=== PATIENT | female | born 1955 | race Caucasian/White ===

== ENCOUNTER 2019-09-03 10:55 | Outpatient (RCR) | payer MEDICARE | END 2019-09-28 | LOC: PT 10:55 | PROVIDERS: ATTEND Specialist | DX: M47.896 Other spondylosis, lumbar region (principal); S39.012A Strain of muscle, fascia and tendon of lower back, initial encounter; M53.86 Other specified dorsopathies, lumbar region; M62.81 Muscle weakness (generalized); R26.89 Other abnormalities of gait and mobility | CPT/HCPCS: 97139 ==

== ENCOUNTER 2019-10-28 14:23 | Inpatient (IN) | payer MEDICARE, OTHER ==
[~2019-10-28] VITALS: Ht 152.4 cm; Wt 48.3 kg
[2019-10-28 15:23] LABS: BASOPHILS # (AUTO) 0.1 (0.0-0.1); BASOPHILS % 0.8 % (0.0-1.0); EOSINOPHILS # (AUTO) 0.2 (0.0-0.4); EOSINOPHILS % 1.9 % (0.0-6.0); HEMATOCRIT 30.2 % (34.2-44.1); HEMOGLOBIN 10.5 g/dL (12.0-16.0); LYMPHOCYTES # (AUTO) 1.2 (1.0-3.2); LYMPHOCYTES % 12.4 % (18.0-39.1); MEAN CORPUSCULAR HEMOGLOBIN 31.3 pg (28-32); MEAN CORPUSCULAR HGB CONC 34.8 g/dL (31-35); MEAN CORPUSCULAR VOLUME 89.9 fL (81-99); MONOCYTES # (AUTO) 0.5 (0.2-0.8); MONOCYTES % 5.3 % (4.4-11.3); NEUTROPHILS # (AUTO) 7.4 (2.1-6.9); NEUTROPHILS % 79.2 % (38.7-80.0); PLATELET COUNT 356 x10e3/uL (140-360); RED BLOOD COUNT 3.36 x10e6/uL (3.6-5.1); RED CELL DISTRIBUTION WIDTH 13.7 % (11.7-14.4)
[2019-10-28 15:42] LABS: ALANINE AMINOTRANSFERASE 12 IU/L (0-55); ALBUMIN 2.7 g/dL (3.5-5.0); ALKALINE PHOSPHATASE 147 IU/L (40-150); ANION GAP 11.2 mmol/L (8-16); BLOOD UREA NITROGEN 14 mg/dL (7-26); BUN/CREATININE RATIO 23 (6-25); CALCIUM 8.7 mg/dL (8.4-10.2); CARBON DIOXIDE 28 mmol/L (22-29); CHLORIDE 103 mmol/L (98-107); CREATINE KINASE 298 IU/L (29-168); CREATININE, SERUM 0.61 mg/dL (0.57-1.11); EST GLOMERULAR FILTRATION RATE > 60 ML/MIN (60-); GLUCOSE 100 mg/dL (74-118); SODIUM 140 mmol/L (136-145)
[2019-10-28 15:50] LABS: POTASSIUM 2.2 mmol/L (3.5-5.1)
[2019-10-28] MEDS ORDERED: DIATRIZOATE MEGL/DIATRIZOA SOD 30 ML BTL PO ONE (15:51)
[2019-10-28] MEDS ORDERED: POTASSIUM CHLORIDE 20 MEQ TAB CR PO STA (15:54)
[2019-10-28] MEDS ORDERED: SODIUM CHLORIDE 0.9% 50ML 0 ML ONE (16:13)
[2019-10-28] MEDS ORDERED: IOPAMIDOL 370 MG/ML 200 ML INFUS..BTL INJ ONE ×2 (16:13→16:28)
[2019-10-28] MEDS ORDERED: SODIUM CHLORIDE 0.9% 50ML 50 ML ONE (16:28)
--- NOTE | 2019-10-28 16:34 | Diagnostic Imaging Report ---
X-ray chest AP portable Comparison: None History: Severe abdominal pain Findings: This is a suboptimal x-ray exam. There is apical lordotic positioning. There is significant patient rotation on this exam. Heart size is borderline normal. Aorta is atherosclerotic. Central airways appear unremarkable. No significant abnormality of the mediastinum to the extent visualized. There is no pleural effusion. There is no pneumothorax. There is no significant focal lung disease. Visualized skeletal structures are unremarkable. Cuboid opacities are seen in the upper abdomen. These could represent inspissated fecal matter. There is lucency under the diaphragm. This most likely represents air in the colon or the stomach however it is difficult to confirm that this is intraluminal versus possibly extraluminal because of the significant patient rotation. Impression: Findings as above. Please repeat an upright chest x-ray with better patient positioning to characterize subdiaphragmatic lucency and rule out free intraperitoneal air with certainty. Cross-sectional imaging would be another option. Signed by: Pradip Titus MD on 10/28/2019 4:30 PM
[2019-10-28] MEDS ORDERED: POTASSIUM CHLORIDE 10MEQ/100ML 100 ML IV ONE (17:00)
--- NOTE | 2019-10-28 18:18 | Diagnostic Imaging Report ---
EXAM: CT Abdomen and Pelvis WITH contrast INDICATION: Abdominal pain COMPARISON: None. TECHNIQUE: Abdomen and pelvis were scanned utilizing a multidetector helical scanner from the lung base to the pubic symphysis after administration of IV contrast. Coronal and sagittal reformations were obtained. Dose modulation, iterative reconstruction, and/or weight based adjustment of the mA/kV was utilized to reduce the radiation dose to as low as reasonably achievable. Routine protocol was performed. Scan was performed when during portal venous phase. IV CONTRAST: 150 mL of Omnipaque 300 ORAL CONTRAST: Water COMPLICATIONS: None RADIATION DOSE: Total DLP: 192.13 mGy-cm Estimated effective dose: (DLP x 0.015 x size factor) mSv CTDIvol has been reviewed. It is below the limits set by the Radiation Protocol Committee (RPC). FINDINGS: LINES and TUBES: None. LOWER THORAX: There are bilateral peripheral groundglass opacities incompletely included on this exam. There are also few nodular opacities are seen in lung bases largest measuring 1.4 cm (2/24) HEPATOBILIARY: Multiple ill-defined subcentimeter low-density lesions are seen in both hepatic lobes (series 2, images 16, 17, 18, 22, 25 and 32) No biliary ductal dilation. GALLBLADDER: No radio-opaque stones or sludge. No gallbladder wall thickening. SPLEEN: No splenomegaly. Subcentimeter ill-defined low-density lesions in the anterior aspect of the spleen (series 2, images 2326).. PANCREAS: There is a 1.6 cm low-density lesion in the distal pancreatic body (2/29). Adjacent to this lesion there is decreased attenuation of the distal pancreatic body and tail . Additionally there is soft tissue infiltration surrounding the celiac axis and SMA. There is mass effect on the portal vein. ADRENALS: There is a 2.0 cm right adrenal nodule. The left lateral gland is unremarkable. KIDNEYS/URETERS: Kidneys enhance symmetrically. No hydronephrosis. No cystic or solid mass lesions. No stones. GI TRACT: No abnormal distention, wall thickening, or evidence of bowel obstruction. Marked degree of fecal retention in the rectum compatible constipation. PELVIC ORGANS/BLADDER: Bladder is markedly distended. LYMPH NODES: 0.8 cm left paraortic lymph node (2/43) an 0.7 cm mesenteric lymph nodes (2/42) are nonspecific. VESSELS: In addition to above-mentioned mass effect on portal vein by the pancreatic mass. There is severe atherosclerotic disease in the aorta and major arterial branches. PERITONEUM / RETROPERITONEUM: No free air or fluid. BONES: Sclerotic lesions in the T12, L1, L2 and L3 vertebral bodies are highly suspicious for metastases. Benign-appearing chondroid lesion in the right femoral neck is seen. No aggressive osseous lesion. SOFT TISSUES: Unremarkable. IMPRESSION: 1. Infiltrative pancreatic mass involving the distal pancreatic body and tail as well as celiac axis and SMA with mass effect on portal vein is concerning for primary malignancy. 2. Ill-defined low-density lesions in the liver and spleen as well as right adrenal nodule and sclerotic lesions in the spine are suspicious for metastases. 3. Peripheral nodular groundglass opacities in both lungs could be due to metastases or atypical infection. 4. Marked degree of fecal retention in the rectum compatible constipation. Signed by: Shamar Jeong MD on 10/28/2019 6:15 PM
[2019-10-28] MEDS: MORPHINE SULFATE INJ 4 MG/ML INJ 1ML IV PRN ×2 (18:38→22:45)
[2019-10-28] MEDS: ONDANSETRON HCL INJ 2MG/ML 2ML 2 MG/ML VIAL IV PRN ×2 (18:38→22:45)
[2019-10-28] MEDS ORDERED: MORPHINE SULFATE INJ 4 MG/ML INJ 1ML ONE (18:41)
[2019-10-28] MEDS ORDERED: ONDANSETRON HCL INJ 2MG/ML 2ML 2 MG/ML VIAL ONE (18:41)
[2019-10-28] MEDS ORDERED: MORPHINE SULFATE 2 MG/ML SYR 1ML IV PRN (18:45)
--- NOTE | 2019-10-28 21:35 | NUR ---
HPI: 63-year-old lady who was seen and noted in the emergency room department complaining of abdominal pain with radiation to the back. The patient was quite upset since she has been advised about the findings, which are that of possible pancreatic tumor. She was devastated and wanted to talk to her son. The patient did have CT scan of the abdomen done and the findings are the pancreatic mass involving the distal pancreatic body and tail as well as celiac axis. Review of system: Constitutional: fever and chills, generalized weakness. HEENT: Denies headache, no ear pain, no nosebleed, no sore throat. Cardiovascular: Denies chest pain, PND, swelling of the legs, palpitations or blackout spells. Respiratory: cough. Denies hemoptysis or shortness of breath. Gastrointestinal: Abdominal pain. Denies nausea, vomiting, diarrhea, hematemesis or melena. Genitourinary: frequency. Denies hematuria or dysuria. Neurologic: Denies convulsive disorders, no focal weakness, no ataxia. Psych: Denies anxiety or depression Skin: No rash. Hematological system: Denies bleeding, no petechia. Musculoskeletal: No significant deformity or swelling of the joints. Past medical history: Depression, Chronic back pain. Past surgical history: Noncontributory Family history: Lung Cancer: Grandfather Bone Cancer: Grandmother Social history: Noncontributory. Physical exam: Vital signs: BP: 128/89; HR: 83; RR: 20; Temperature: 98.6 Constitutional: The patient is oriented to person, place, and time. HEENT: Head: Normocephalic and atraumatic. PERRLA. Cardiovascular: Regular rhythm, no murmurs, no rubs, no gallops. Pulmonary/Chest: Clear bilaterally, no rales, no rhonchi. Abdominal: Soft, nontender, bowel sounds positive and normal. No distention, no guarding, no rebound. Musculoskeletal: Normal range of motion. Extremities: No edema, no clubbing. Neurological: The patient is alert and oriented to person, place, and time. Skin: Skin is warm and dry. Pressure ulcer localized in the lateral left hip and buttock area. Psychiatric: He has a normal mood and affect. Abdomen/Pelvis CT on 10/28/2019: 1. Infiltrative pancreatic mass involving the distal pancreatic body and tail as well as celiac axis and SMA with mass effect on portal vein is concerning for primary malignancy. 2. Ill-defined low-density lesions in the liver and spleen as well as right adrenal nodule and sclerotic lesions in the spine are suspicious for metastases. 3. Peripheral nodular groundglass opacities in both lungs could be due to metastases or atypical infection. 4. Marked degree of fecal retention in the rectum compatible constipation. Assessment: Abdominal pain Pancreatic mass by CT-rule out malignancy vrs metastatic disease Ulcer pressure of the left lateral hip and buttock Hypokalemia Constipation PCR for Coronavirus was reported negative. Plan of care: IV antibiotics IV Fluids Pain control Antiemetics as needed Monitor potassium and replace as needed DVT prophylaxis Wound care Hemato-Oncology Consultation Gastroenterology Consultation
[2019-10-28 23:56] LABS: ANION GAP 12.9 mmol/L (8-16); BLOOD UREA NITROGEN 12 mg/dL (7-26); BUN/CREATININE RATIO 21 (6-25); CALCIUM 9.3 mg/dL (8.4-10.2); CARBON DIOXIDE 27 mmol/L (22-29); CHLORIDE 103 mmol/L (98-107); CREATININE, SERUM 0.58 mg/dL (0.57-1.11); EST GLOMERULAR FILTRATION RATE > 60 ML/MIN (60-); GLUCOSE 87 mg/dL (74-118); SODIUM 140 mmol/L (136-145)
[2019-10-29] VITALS (9 sets, daily range): BP systolic 92–132; BP diastolic 50–89
[2019-10-29 00:02] LABS: POTASSIUM 2.9 mmol/L (3.5-5.1)
[2019-10-29] MEDS ORDERED: POTASSIUM CHLORIDE 20MEQ/100ML 100 ML IV ONE (01:45)
--- NOTE | 2019-10-29 03:01 | NUR ---
Received patient from ER via stretcher. Patient in stable condition, no s/s of acute distress at this time. Oriented to room and hospital policies. Bed locked and in low position, side rails up x3, alarm on, call light placed within reach. Patient instructed to call for assistance if needed, verbalized understanding. All safety measures in place. Will continue to monitor.
[2019-10-29] MEDS: MORPHINE SULFATE INJ 4 MG/ML INJ 1ML IV PRN ×5 (03:05→20:36)
[2019-10-29] MEDS: ONDANSETRON HCL INJ 2MG/ML 2ML 2 MG/ML VIAL IV PRN ×5 (03:05→20:36)
[2019-10-29] MEDS ORDERED: SODIUM CHLORIDE 0.9% 250ML 250 ML ONE (03:10)
[2019-10-29] MEDS ORDERED: TRAZODONE HCL50 MG PO (03:20)
[2019-10-29] MEDS ORDERED: XANAX1 MG PO (03:20)
[2019-10-29] MEDS ORDERED: SERTRALINE HCL100 MG PO (03:20)
[2019-10-29] MEDS ORDERED: TRAZODONE HCL100 MG PO (04:56)
[2019-10-29 06:01] LABS: BASOPHILS # (AUTO) 0.1 (0.0-0.1); BASOPHILS % 0.8 % (0.0-1.0); EOSINOPHILS # (AUTO) 0.3 (0.0-0.4); EOSINOPHILS % 2.5 % (0.0-6.0); HEMATOCRIT 31.6 % (34.2-44.1); HEMOGLOBIN 10.7 g/dL (12.0-16.0); LYMPHOCYTES # (AUTO) 1.4 (1.0-3.2); LYMPHOCYTES % 12.8 % (18.0-39.1); MEAN CORPUSCULAR HEMOGLOBIN 30.7 pg (28-32); MEAN CORPUSCULAR HGB CONC 33.9 g/dL (31-35); MEAN CORPUSCULAR VOLUME 90.8 fL (81-99); MONOCYTES # (AUTO) 0.7 (0.2-0.8); NEUTROPHILS # (AUTO) 8.1 (2.1-6.9); NEUTROPHILS % 76.3 % (38.7-80.0); PLATELET COUNT 334 x10e3/uL (140-360); RED BLOOD COUNT 3.48 x10e6/uL (3.6-5.1); RED CELL DISTRIBUTION WIDTH 13.9 % (11.7-14.4)
[2019-10-29 06:39] LABS: ALANINE AMINOTRANSFERASE 15 IU/L (0-55); ALBUMIN 2.8 g/dL (3.5-5.0); ALKALINE PHOSPHATASE 150 IU/L (40-150); ANION GAP 12.6 mmol/L (8-16); BLOOD UREA NITROGEN 10 mg/dL (7-26); BUN/CREATININE RATIO 17 (6-25); CALCIUM 9.2 mg/dL (8.4-10.2); CARBON DIOXIDE 26 mmol/L (22-29); CHLORIDE 104 mmol/L (98-107); EST GLOMERULAR FILTRATION RATE > 60 ML/MIN (60-); GLUCOSE 86 mg/dL (74-118); MAGNESIUM 1.6 MG/DL (1.3-2.1); PHOSPHORUS 2.6 MG/DL (2.3-4.7); POTASSIUM 3.6 mmol/L (3.5-5.1); SODIUM 139 mmol/L (136-145)
[2019-10-29 06:53] LABS: CREATINE KINASE 266 IU/L (29-168)
[2019-10-29 12:51] LABS: CREATINE KINASE 198 IU/L (29-168)
--- NOTE | 2019-10-29 14:33 | NUR ---
WOUND CARE CONSULT FOR 63 YO FEMALE HX OF HYPOKALEMIA, PANCREATIC MASS. CHET 13 ON MODERATE PUP STATUS AND INTERVENTIONS LABS: WBC- 10.59 HGB- 10.7 GLUCOSE-87 SKIN ASSESSMENT COMPLETE PATIENT PRESENTS WITH: 1)STAGE II PRESSURE ULCER TO LEFT LATERAL HIP; MEASURING 1 CM X 1CM X 0.1 CM, WITH MINIMAL SEROUSANGUINEOUS DRAINAGE, AND 100% RED GRANULATION. 2)STAGE II PRESSURE ULCER TO LEFT DISTAL BUTTOCK; MEASURING 1.5 CM X 1.5 CM X 0.1 CM WITH 90% YELLOW SLOUGH COVERING WOUND BASE AND 10 % PINK GRANULATION. 3)STAGE II PRESSURE ULCER TO LEFT PROXIMAL BUTTUCK; MEASURING BENJIE STAGE 1 MEASURES 2.5 CM X 1.5 CM X 0.1 CM, WITH 15 % YELLOW SLOUGH AND 85% PINK GRANULATION. RECOMMENDATIONS: NURSING TO CONTINUE TO MONITOR PATIENT AND KEEP SKIN CLEAN FREE OF IRRITATING MOISTURE AND CONTINUE TO FOLLOW MODERATE PUP INTERVENTIONS. NURSING TO CONTINUE TO GET PATIENT OUT OF BED FOR MEALS AND MUCH TOLERATED. NURSING TO CLEAN STAGE II PRESSURE ULCERS TO LEFT BUTTOCK WITH NORMAL SALINE, PAT DRY WITH 4X4 GAUZE AND APPLY VENELEX OINTMENT TO PERIWOUND COVER WITH ALLEVYN FOAM DRESSING DAILY AND NEEDED. NURISNG TO CLEAN STAGE II PRESSURE ULCER TO LEFT LATER HIP WITH NORMAL SALINE, PAT DRY WITH 4X4 GAUZE, APPLY FIBRACOL, APPLY 1 DROP OF NORMAL SALINE AND COVER WITH ALLEVEN FOAM. NURSING TO CONTINUE TO ASSIST PATIENT NEEDED WITH MEALS AND NUTRITIONAL SUPPLEMENTS TO ENSURE PROPER REQUIREMENTS FOR HEALING. NURSING TO CONTINUE TO OFFLOAD FEET AND HEELS NEEDED WITH PILLOW SUSPENSION WHEN IN BED. NURSING TO REPOSITION PATIENT SIDE TO SIDE Q2H AND PRN. NURSING TO CONSULT WOUND CARE NEEDED. Addendum: 10/29/19 at 1456 by Princess Galeano RN Amended: Links added.
--- NOTE | 2019-10-29 16:59 | NUR ---
Subjective: The patient was complaining of abdominal pain Feeling somewhat constipated, denies chest pain. Breathing better. No fever, no nausea, no vomiting, no diarrhea. Review of system: Constitutional: No Fever, No chills, No General weakness HEENT: No headaches. Cardiovascular: Denies chest pain, palpitations, PND, swelling of the legs. Respiratory: No Cough, hemoptysis or SOB GI: Patient presented with abdominal pain and feeling nauseated. No vomiting no diarrhea.. : Denies Hematuria, Dysuria, Frequency Musculoskeletal: Denies joint pain Neuro: No focal weakness Psych: No anxiety or depression. Skin: No rashes, Itching, Hives Lab data: Hemoglobin 10.7, WBC 10.59, platelet count 334,000 Creatinine kinase 198 cardiac enzymes negative TSH 2.82 Free T4 1.111 T4 3.40 Assessment: Abdominal pain Pancreatic mass as determined by CT Ulcer pressure of the left lateral hip/buttock Hypokalemia Constipation Plan of care: Continue present care Pulmonary consultation requested IV fluids Pain control Antibiotics Antiemetic as needed DVT prophylaxis Hematology consultation GI consultation
[2019-10-29 17:45] LABS: CREATINE KINASE 165 IU/L (29-168)
[2019-10-29] MEDS: LACTULOSE SYRUP 20 GM/30 ML UDC PO PRN (18:01)
--- NOTE | 2019-10-29 20:21 | NUR ---
Received pt in bed awake and alert. No s/sx distress noted, bed in lowest position personal items and call light within reach.
[2019-10-29] MEDS: TRAZODONE HCL 50 MG TAB PO SCH (22:20)
[2019-10-29] MEDS: ALPRAZOLAM 1 MG TAB PO SCH (22:20)
[2019-10-29] MEDS ORDERED: BISACODYL 10 MG SUPP PR ONE (23:45)
[2019-10-30] VITALS (8 sets, daily range): BP systolic 94–110; BP diastolic 58–73
--- NOTE | 2019-10-30 02:22 | Consultation ---
DATE OF CONSULTATION: 10/29/2019 Pulmonary Medicine Consult REASON FOR REFERRAL: Abnormal chest radiography. HISTORY OF PRESENT ILLNESS: The patient is a pleasant 63-year-old female with abnormal chest radiography. The patient was having recent issues with back pain. She has a recent hospitalization in 2019 with reported sepsis and she had another brief ER visit just a couple of months ago with back pain. The patient had abdominal pain as well. She underwent a CT of the abdomen and pelvis due to worsening, which she came to the emergency room. CT of abdomen and pelvis demonstrated constipation, a full bladder, pancreatic tail mass versus edema and possible adrenal and hepatic associated metastases. In the lungs, there were fibrotic strands that were mild as well as a few patchy mild opacities that were present. I am consulted. No chronic cough. No fevers. No chronic phlegm. She did lose about 30 pounds of weight over the last three months without any chronic respiratory conditions known. PAST MEDICAL HISTORY: Depression, chronic back pain, and alcohol dependency. MEDICATIONS: These were reviewed per the chart record and are listed. ALLERGIES: NO KNOWN DRUG ALLERGIES OF NOTE. SOCIAL HISTORY: No hard drugs, just some marijuana in the past. Alcohol, tequila 4-5 drinks a day, but she cut down a year ago when she got septic. She quit in . Tobacco was age [age], one-pack per day. 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 FAMILY HISTORY: Noncontributory. REVIEW OF SYSTEMS: GENERAL: There is some anorexia. HEENT: No mouth ulcers. OPHTHALMOLOGIC: No corneal ulcers known. ENDOCRINE: No thyroid disease. PULMONARY: No asthma. CARDIAC: No heart attack. GI: No diarrhea. : No bloody urine. IMMUNOLOGIC: Mild arthritis. DERMATOLOGIC: No rash. NEUROLOGIC: No seizures. PSYCHIATRIC: No depression. OBJECTIVE: VITAL SIGNS: Afebrile, vital signs noted, reviewed per the chart record. GENERAL: In no acute distress. Alert and calm. HEENT: Normocephalic and atraumatic. NECK: Supple. Throat midline. LUNGS: Bilateral air entry, limited, but mostly clear. CARDIOVASCULAR: S1, S2. No murmurs, rubs, or gallops. ABDOMEN: There is some fullness, although it is soft, nonspecific discomfort at times. EXTREMITIES: No clubbing, no cyanosis, no edema. INTEGUMENT: No rash no purpura. LABORATORY DATA: 10 BUN, 0.6 creatinine. 26 bicarbonate. 11 white count, 32 hematocrit, 334 platelets. IMPRESSION AND PLAN: 1. Mild nonspecific pulmonary opacities, unclear etiology. 2. Pulmonary opacities, treat this possible mild pneumonia. 3. Mild pulmonary opacities, possible indolent chronic condition/infection especially. 4. Abnormal chest radiography, less likely, but not ruled out chronic noninfectious pneumonitis or tumor/malignancy. 5. Functional immunosuppression, lifelong alcoholism. 6. Recent weight loss, evolving non-nutritional. 7. Pancreatic lesion, malignancy suspected, rule out other etiologies. 8. Nonspecific adrenal and liver lesions, rule out metastases. 9. Admitted with severe back pain, unrelenting/progressive. 10. Chronic depression. 11. Alcohol dependency, recently quit. 12. Active smoker. Recommend trial of antibiotic in clinical followup. The patient will get repeat chest CT to ensure. The opacities are improving or at least stable and this will be an outpatient study. In the meantime, I recommend to target the abdominal lesions to assess for etiology of the possible mass lesions. The patient is strongly recommended to continue alcohol abstinence. She furthermore is recommended to quit smoking as feasible. The patient should get vitamin supplementation or other nutritional supplements given her weight loss. Thank you very much, Dr. Hitchcock, for this consult. Please call for questions. MD ANA Bella/MODL /[id number]
[2019-10-30] MEDS: MORPHINE SULFATE INJ 4 MG/ML INJ 1ML IV PRN ×5 (04:13→20:37)
[2019-10-30] MEDS: ONDANSETRON HCL INJ 2MG/ML 2ML 2 MG/ML VIAL IV PRN ×2 (04:13→20:38)
--- NOTE | 2019-10-30 06:12 | NUR ---
Pt resting in bed, no s/sx of distress. No bm at this time. Will cont to mon. GI MD in to see patient orders noted for suppository for constipation and other orders noted
--- NOTE | 2019-10-30 07:00 | NUR ---
BEDSIDE SHIFT REPORT RECEIVED FROM THE MACHINE HOSTLER RN. EDUCATED PT ABOUT FALL PRECAUTIONS. PT VERBALIZED UNDERSTANDING. CALL LIGHT WITH IN EASY REACH. INSTRUCTED PT TO USE CALL LIGHT FOR ALL THE NEEDS. BED IS LOW AND LOCKED. SIDE RAILS X2. BED ALARM IS ON. PT DENIES NEEDS AT THIS TIME.
[2019-10-30 07:07] LABS: BASOPHILS # (AUTO) 0.1 (0.0-0.1); BASOPHILS % 0.8 % (0.0-1.0); EOSINOPHILS # (AUTO) 0.3 (0.0-0.4); EOSINOPHILS % 2.9 % (0.0-6.0); HEMATOCRIT 31.4 % (34.2-44.1); HEMOGLOBIN 10.6 g/dL (12.0-16.0); LYMPHOCYTES # (AUTO) 1.3 (1.0-3.2); LYMPHOCYTES % 13.1 % (18.0-39.1); MEAN CORPUSCULAR HEMOGLOBIN 31.3 pg (28-32); MEAN CORPUSCULAR HGB CONC 33.8 g/dL (31-35); MEAN CORPUSCULAR VOLUME 92.6 fL (81-99); MONOCYTES # (AUTO) 0.7 (0.2-0.8); MONOCYTES % 6.7 % (4.4-11.3); NEUTROPHILS # (AUTO) 7.5 (2.1-6.9); NEUTROPHILS % 76.2 % (38.7-80.0); PLATELET COUNT 307 x10e3/uL (140-360); RED BLOOD COUNT 3.39 x10e6/uL (3.6-5.1); RED CELL DISTRIBUTION WIDTH 14.2 % (11.7-14.4)
[2019-10-30 07:20] LABS: ALANINE AMINOTRANSFERASE 14 IU/L (0-55); ALBUMIN 2.6 g/dL (3.5-5.0); ALBUMIN/GLOBULIN RATIO 0.9 (0.8-2.0); ALKALINE PHOSPHATASE 152 IU/L (40-150); ANION GAP 12.3 mmol/L (8-16); BLOOD UREA NITROGEN 9 mg/dL (7-26); BUN/CREATININE RATIO 16 (6-25); CALCIUM 9.4 mg/dL (8.4-10.2); CARBON DIOXIDE 29 mmol/L (22-29); CHLORIDE 104 mmol/L (98-107); CREATININE, SERUM 0.58 mg/dL (0.57-1.11); EST GLOMERULAR FILTRATION RATE > 60 ML/MIN (60-); GLUCOSE 95 mg/dL (74-118); POTASSIUM 3.3 mmol/L (3.5-5.1); SODIUM 142 mmol/L (136-145)
[2019-10-30 08:00] LABS: FREE THYROXINE INDEX 1.1111 (1.4-3.8); THYROID STIMULATING HORMONE 2.882 uIU/mL (0.350-4.940)
[2019-10-30] MEDS: SERTRALINE HCL 100 MG TAB PO SCH (09:08)
[2019-10-30] MEDS: POLYETHYLENE GLYCOL 3350 17 GM PACK PO SCH (09:08)
[2019-10-30] MEDS: MULTIVITAMINS/MINERALS TAB PO SCH (09:08)
--- NOTE | 2019-10-30 09:57 | NUR ---
Pt is day 2 observation and meets inpatient status due to pain level. Call placed to Dr. Tank Franks [phone] to request Inpatient order. Awaiting return call.
[2019-10-30] MEDS: BALSAM PERU/CASTOR OIL 60 GM OINT...G. TP SCH (10:00)
[2019-10-30] MEDS: CLARITHROMYCIN 500 MG TAB PO SCH ×2 (10:00→16:41)
--- NOTE | 2019-10-30 10:00 | NUR ---
DR. MIMS AT BEDSIDE.
--- NOTE | 2019-10-30 10:05 | NUR ---
COMPLETE THE INFORMED CONSENT CONSENT FOR IMAGE GUIDED LIVER BIOPSY FOR RADIOLOGY PER DR. MIMS.
--- NOTE | 2019-10-30 10:11 | NUR ---
RECEIVED CALL FROM DR. CARTER DONOVAN AND DISCUSSED PT STATUS AND PAIN. HE GAVE ORDER FOR INPATIENT.
--- NOTE | 2019-10-30 10:34 | NUR ---
Met with pt and explained she is no longer observation status, but is now inpatient. Educated on IMM letter. Verbalized understanding and signed. Copy placed in transition folder at bedside, and original placed on chart.
--- NOTE | 2019-10-30 11:00 | NUR ---
OBTAIN CONSENT FOR DR. ERIN PABON PER RADIOLOGY. PEEWEE PER DR. MIMS.
--- NOTE | 2019-10-30 11:03 | Consultation ---
DATE OF CONSULTATION: 10/30/[address] Hitchcock for this consultation. REASON FOR CONSULTATION: Pancreatic mass. HISTORY OF PRESENT ILLNESS: Ms. Rico is a 63-year-old female with past medical history includes depression, chronic back pain and history of alcoholism, currently in hospital with worsening back pain, fatigue, lethargy and tiredness. She is also complaining of weight loss. She denies any GI bleed. Her recent scan showed 1.5 cm pancreatic tumor with small multiple liver lesions on both lobes. I am currently involved for further care. The patient denies any recent onset of jaundice. No recent fever or chills. PAST MEDICAL HISTORY: Depression, chronic back pain, alcohol dependence. ALLERGIES: NKDA. MEDICATIONS LIST: Reviewed. SOCIAL HISTORY: History of alcohol abuse, recently cut down. History of marijuana use. History of smoking, she smokes one pack a day. FAMILY HISTORY: Noncontributory. REVIEW OF SYSTEMS: As per the HPI. PHYSICAL EXAMINATION: GENERAL: Alert, awake, in mild to moderate pain. HEENT: Normocephalic, atraumatic. Sclerae pale. Conjunctivae are clear. NECK: Supple. CHEST: Decreased breath sounds at the bases. ABDOMEN: Soft, mildly tender. EXTREMITIES: No edema. BACK: Tender. CENTERLESS GRINDER SET UP OPERATOR: Intact. LABS AND IMAGING: Reviewed. ASSESSMENT AND PLAN: The patient with history of multiple medical conditions. I am currently following for, 1. Pancreatic mass with bilateral multiple liver lesions. 2. Possibility of pancreatic malignancy. 3. CA 19-9 is ordered, report is pending. RECOMMENDATION: 1. We will get CT-guided pancreatic tail mass biopsy. 2. Further recommendation and treatment as per workup. 3. We will monitor the patient very closely. 4. Discussed with patient and patient's son, Marino Hanson over the phone about the plan of care. 5. The patient and son agree. 6. We will follow. 7. Continue pain management, pain is not controlled. 8. Continue morphine sulfate with every 3-hour as needed. 9. Nutrition support for recent weight loss. 10. We will follow the patient very closely. 11. Mild anemia. The patient's hemoglobin is 10, MCV is normal. 12. Multifactorial etiology and possibility of malignancy. 13. We will monitor CBC very closely. Further recommendation and care as an outpatient. MD KELSIE Preston /[id number]
[2019-10-30] MEDS ORDERED: BISACODYL 10 MG SUPP PR PRN (15:45)
[2019-10-30] MEDS: LACTULOSE SYRUP 20 GM/30 ML UDC PO PRN (16:28)
--- NOTE | 2019-10-30 16:47 | NUR ---
Pulmonary Medicine DATE 10/30/2019 SUBJECTIVE: STABLE BREATHING ra FIO2 no resp distress very small BMs only some UOP abd still with discomfort REVIEW OF SYSTEMS: NO RASH, (+) anorexia. OBJECTIVE: VITAL SIGNS: vital signs noted, reviewed per the chart record. GENERAL: no acute distress. Alert and calm. HEENT: Normocephalic, atraumatic. NECK: Supple. Throat midline. LUNGS: Bilateral air entry, limited, but mostly clear. CARDIOVASCULAR: S1, S2. No murmurs, rubs, or gallops. ABDOMEN: some fullness, mild discomfort on moderate palpation EXTREMITIES: No clubbing, no cyanosis, no edema. INTEGUMENT: No rash no purpura. LABORATORY DATA: 3.3 k 10 wbc, hct 31, plt 307 IMPRESSION AND PLAN: 1. Mild nonspecific pulmonary opacities, unclear etiology. 2. Pulmonary opacities, treat as mild pneumonia. 3. Mild pulmonary opacities, possible indolent chronic condition/infection, possible scarring. 4. Abnormal chest radiography, less likely, but not ruled out chronic progressive noninfectious pneumonitis or tumor/malignancy. 5. Functional immunosuppression, lifelong alcoholism. 6. Recent weight loss 7. Pancreatic lesion, malignancy suspected, rule out other etiologies. 8. Nonspecific adrenal and liver lesions, rule out metastases. 9. Severe back pain, unrelenting/progressive. 10. Chronic depression. 11. Alcohol dependency, recently quit. 12. Active smoker. Trial of antibiotic Outpatient repeat chest CT Tentative IR biopsy on friday, probably the liver lesion Needs BMs Ensure UOP Vitamins, avoid worsening malnutrition Thank you very much, Dr. Hitchcock, for this consult. Please call for questions.
--- NOTE | 2019-10-30 17:43 | NUR ---
PT HAD MULTIPLE MODERATE BM NOTED FOR THE DAY. PT DENIES NEEDS AT THIS TIME.
--- NOTE | 2019-10-30 17:59 | NUR ---
Nutrition Intervention Note RD Recommendation(s) for Physician: The patient meets criteria for unspecified SEVERE protein-calorie malnutrition. -Advance to regular diet as tolerated (or when GI symptoms resolved) -Continue Ensure Enlive TID to promote protein-calorie intake -Add Ensure pudding BID if acceptable by patient -Continue MVI w/minerals + vitamin C for wound healing Plan of Care: RD following, monitoring for tolerance and adequacy, ONS rec Nutrition reason for involvement: Nutrition Risk Trigger MST RD Assessment (10/29) Chart reviewed. Labs and meds revised. 63yo F, who was admitted for pancreatic mass. Visited pt in the room. Pt was emotional about her current situation. Pt reported of abdominal pain with constipation that was ongoing for over a month. Pt also reported weight loss due to ongoing pain (UBW 115-120lbs). Pt was given dulcolax, lactulose and miralax without any relief. Pt reported tolerance with full liquid diet. Pt stated that solid foods make her nauseated and preferred liquid diet. Pt has been drinking 100% of Ensure Enlive. No chewing or swallowing difficulty noted. Pt was motivated to keep her PO intake up. Discussed current nutrition care plan with pt and pt was agreeable. All questions have been answered. Will continue to monitor and follow. Principal Problems/Diagnoses: pancreatic mass, hypokalemia PMH: Depression, chronic back pain, alcohol dependence I/O: reviewed GI: abdomen soft, flat, non-tender Skin: Multiple stage II pressure ulcers Labs: (10/29) K 3.3 L Meds: dulcolax, lactulose, miralax, abx, morphine, MVI w/minerals, zofran Ht: 60in Wt: 106.4lb BMI: 20.8kg/m2 IBW: 100lb +/- 10% Malnutrition Evaluation (10/30/2019) The patient meets criteria for unspecified SEVERE protein-calorie malnutrition. Energy intake: <50% of estimated energy requirements for >1 month Weight loss: >5% in 1 month (Acute) Fat loss: Severe - prominent rib cage, hollow around orbital area Muscle loss: Severe squaring of shoulder, clavicle protrusion Supporting Evidence: Fluid accumulation: no accumulation identified Functional Status: no changes Nutrition Prescription (Diet Order): full liquid diet Estimated Nutritional Needs: Calories: 1440 1680kcal(30-35kcal/kg/d) Weight used: CBW Protein : 72 96kcal(1.5-2.0g/kg/d) Weight used: CBW Diet Adequacy: meeting calorie needs, meeting protein needs Tolerance: Tolerating PO Diet Education Needs Assessment: Diet education not indicated. Nutrition Care Level: High (possible malignancy, weight loss) Nutrition Diagnosis: Severe malnutrition related to current medical status as evidenced by weight loss, loss of muscle/ fat, and <50% of estimated energy requirements for >1 month. Goal: Patient will meet 75-100% of estimated needs by follow up Progress: Progressing Interventions: Modified diet, Commercial beverage, Commercial food, Multivitamin/mineral supplement therapy Monitoring/Evaluation: Total energy intake, Total protein intake, Modified diet, Liquid supplement, Weight change Signed: Iman Esteves MS, RD, LD
--- NOTE | 2019-10-30 18:00 | NUR ---
PAGED DR. YIFAN DONOVAN AND LEFT MESSAGE REGARDING PT K LEVEL 3.3. WAITING FOR THE RESPONSE FORM THE
--- NOTE | 2019-10-30 18:30 | NUR ---
DR. CARTER DONOVAN AT BEDSIDE. NO SUPPOSITORY AT THIS TIME PER THE
[2019-10-30] MEDS ORDERED: POTASSIUM CHLORIDE 10MEQ EA PO NR (18:45)
--- NOTE | 2019-10-30 19:21 | NUR ---
BEDSIDE SHIFT REPORT GIVEN TO THE INSTITUTE SCIENTIST RN. PT DENIED FURTHER NEEDS.
--- NOTE | 2019-10-30 19:31 | NUR ---
Received patient in bed awake a/ox3. No s/sx of distress. no c/o at this time. Bed in low position call light and personal items in reach. Will cont to mon.
[2019-10-30] MEDS: TRAZODONE HCL 50 MG TAB PO SCH (21:58)
[2019-10-30] MEDS: ALPRAZOLAM 1 MG TAB PO SCH (21:58)
--- NOTE | 2019-10-30 23:08 | NUR ---
Subjective: The patient was simulated. The patient was feeling much better. The patient condition was discussed with oncologist team. Patient be scheduled to undergo CT-guided pancreatic tail mass biopsy on Friday. Adjustment of pain medication as advised by Dr. Wilder and morphine intravenously has been adjusted. The patient denies fever chills. Pain is bett er controlled. Has had diarrhea. The patient denies chest pain, breathing better. Has had some diarrhea because bile laxatives. Objective: Patient alert oriented to person time and place. Vital signs: Blood pressure 100/61, respiration 19, pulse 84, temperature 97.4 HEENT: No gross abnormalities Neck: Supple no JVD Lungs: Clear to auscultation Heart: Regular rate and rhythm, no murmurs no gallops Abdomen: Soft non tender, no guarding. Extremities: No edema Neurologic: Alert oriented 3, no focal weakness. Psychiatrist: Normal mood, normal judgment. Skin: No rashes Lab data reviewed: Hemoglobin 9.8, WBC 9.46, platelet count 283,000 TSH 2.882, thyroxine 3.40 which is low Assessment: Pancreatic mass, possible malignancy. History of constipation Hypokalemia Pressure ulcer of left lateral hip/buttock Anemia Plan of care: 1. Oncology consultation requested. Recommendations noted. Patient has been scheduled to undergo CT scan guided pancreatic tail mass biopsy. 2. Pain control. 3. DVT prophylaxis. 4. Monitor labs. 5. Replete potassium 6. Discussed with nursing staff about patient condition and with Dr. Wilder
[2019-10-31] VITALS (9 sets, daily range): BP systolic 92–115; BP diastolic 60–71
[2019-10-31] MEDS: MORPHINE SULFATE INJ 4 MG/ML INJ 1ML IV PRN ×7 (00:56→20:49)
[2019-10-31] MEDS: ONDANSETRON HCL INJ 2MG/ML 2ML 2 MG/ML VIAL IV PRN ×3 (00:57→08:33)
--- NOTE | 2019-10-31 01:10 | NUR ---
in to see patient, orders noted for Dulcolax supp. Pt previously medicated for pain. No s/sx distress noted at this time, will cont w/ care.
[2019-10-31] MEDS ORDERED: BISACODYL 10 MG SUPP PR ONE (01:15)
[2019-10-31 06:31] LABS: BASOPHILS # (AUTO) 0.1 (0.0-0.1); BASOPHILS % 0.5 % (0.0-1.0); EOSINOPHILS # (AUTO) 0.3 (0.0-0.4); EOSINOPHILS % 3.6 % (0.0-6.0); HEMATOCRIT 30.4 % (34.2-44.1); HEMOGLOBIN 9.8 g/dL (12.0-16.0); LYMPHOCYTES # (AUTO) 1.5 (1.0-3.2); LYMPHOCYTES % 15.5 % (18.0-39.1); MEAN CORPUSCULAR HEMOGLOBIN 30.2 pg (28-32); MEAN CORPUSCULAR HGB CONC 32.2 g/dL (31-35); MEAN CORPUSCULAR VOLUME 93.8 fL (81-99); MONOCYTES # (AUTO) 0.7 (0.2-0.8); MONOCYTES % 7.7 % (4.4-11.3); NEUTROPHILS # (AUTO) 6.8 (2.1-6.9); NEUTROPHILS % 72.2 % (38.7-80.0); PLATELET COUNT 283 x10e3/uL (140-360); RED BLOOD COUNT 3.24 x10e6/uL (3.6-5.1); RED CELL DISTRIBUTION WIDTH 14.3 % (11.7-14.4)
[2019-10-31 06:49] LABS: ANION GAP 11.3 mmol/L (8-16); BLOOD UREA NITROGEN 13 mg/dL (7-26); BUN/CREATININE RATIO 23 (6-25); CALCIUM 9.2 mg/dL (8.4-10.2); CARBON DIOXIDE 32 mmol/L (22-29); CHLORIDE 102 mmol/L (98-107); CREATININE, SERUM 0.56 mg/dL (0.57-1.11); EST GLOMERULAR FILTRATION RATE > 60 ML/MIN (60-); GLUCOSE 108 mg/dL (74-118); POTASSIUM 4.3 mmol/L (3.5-5.1); SODIUM 141 mmol/L (136-145)
[2019-10-31 07:22] LABS: FERRITIN 206.5 ng/mL (4.63-204.00)
--- NOTE | 2019-10-31 07:30 | NUR ---
PATIENT IS AWAKE, ALERT, AND IN STABLE CONDITION WITH NO S/S OF RESPIRATORY DISTRESS. PATIENT STATED CURRENT ABD PAIN 5/10. ALLEVYN PADS APPLIED TO SACRUM AREA/WOUNDS AND LEFT HIP AREA (HEALING WOUND). TELEMETRY APPLIED. CALL LIGHT IS WITHIN REACH- PATIENT INSTRUCTED TO CALL FOR ASSISTANCE.
[2019-10-31] MEDS: POLYETHYLENE GLYCOL 3350 17 GM PACK PO SCH (08:37)
[2019-10-31] MEDS: SERTRALINE HCL 100 MG TAB PO SCH (08:37)
[2019-10-31] MEDS: MULTIVITAMINS/MINERALS TAB PO SCH (08:37)
[2019-10-31] MEDS: CLARITHROMYCIN 500 MG TAB PO SCH ×2 (08:37→16:00)
[2019-10-31] MEDS: BALSAM PERU/CASTOR OIL 60 GM OINT...G. TP SCH (08:51)
--- NOTE | 2019-10-31 17:03 | NUR ---
Pulmonary Medicine DATE 10/31/2019 SUBJECTIVE: BM small to moderate some urine still abd discomfort no respiratory distress REVIEW OF SYSTEMS: No bleed, (+) anorexia. OBJECTIVE: VITAL SIGNS: vital signs noted, reviewed per the chart record. GENERAL: no acute distress. Alert and calm. HEENT: Normocephalic, atraumatic. NECK: Supple. Throat midline. LUNGS: Bilateral air entry, limited, but mostly clear. CARDIOVASCULAR: S1, S2. No murmurs, rubs, or gallops. ABDOMEN: some fullness, mild discomfort on moderate palpation EXTREMITIES: No clubbing, no cyanosis, no edema. INTEGUMENT: No rash no purpura. LABORATORY DATA: cr .56, wbc 9.5, hct 30 IMPRESSION AND PLAN: 1. Mild nonspecific pulmonary opacities, unclear etiology. 2. Pulmonary opacities, treat as mild pneumonia. 3. Mild pulmonary opacities, possible indolent chronic condition/infection, possible scarring. 4. Abnormal chest radiography, less likely, but not ruled out chronic progressive noninfectious pneumonitis or tumor/malignancy. 5. Functional immunosuppression, lifelong alcoholism. 6. Recent weight loss 7. Pancreatic lesion, malignancy suspected, rule out other etiologies. 8. Nonspecific adrenal and liver lesions, rule out metastases. 9. Severe back pain, unrelenting/progressive. 10. Chronic depression. 11. Alcohol dependency, recently quit. 12. Active smoker. Trial of antibiotic continue Outpatient repeat chest CT Tentative IR biopsy on friday, reportedly the liver lesion Continue BMs Ensure UOP Vitamins, avoid worsening malnutrition AM coags check bladder scan, r/o retention Thank you very much, Dr. Hitchcock, for this consult. Please call for questions.
--- NOTE | 2019-10-31 19:15 | NUR ---
PATIENT IS IN STABLE CONDITION WITH NO S/S OF RESPIRATORY DISTRESS. PAIN MEDICATION GIVEN RECENTLY. ALLEVYN PADS APPLIED TO SACRUM AREA/WOUNDS AND LEFT HIP AREA. TELEMETRY APPLIED. BED ALARM APPLIED. CALL LIGHT IS WITHIN REACH- PATIENT INSTRUCTED TO CALL FOR ASSISTANCE. BEDSIDE SHIFT REPORT GIVEN TO ONCOMING NURSE. PATIENT VOIDED AT 1850- BLADDER SCANNED RESULT 348; STRAIGHT CATH PATIENT ORDERED RESULTS 300CC.
--- NOTE | 2019-10-31 19:30 | NUR ---
BSSR RECEIVED FROM LEIGHANN, PATIENT AWAKE ALERT, UPDATED WITH NEXT DOSE OF PAIN MEDICATION DOSE, PATIENT REPORTING PAIN SACRAL AND LEFT HIP AREA, ALLEVYN PADS IN PLACE TO SACRUM AREA/WOUNDS AND LEFT HIP AREA. TELEMETRY IN PLACE, CONTINUOS MONITORING IN PLACE , PATIENT ABLE TO SELF TURN, ENCOURAGED TO REPOSITION EVERY 2 HOURS, LYING SUPINE ON RIGHT SIDE CURRENTLY, CALL LIGHT WITHIN REACH, IV LEFT AC PATENT, SLIGHT REDNESS NOTED, NO PAIN REPORT BY PATIENT, GOOD BLOOD RETURN
[2019-10-31] MEDS: TRAZODONE HCL 50 MG TAB PO SCH (20:48)
[2019-10-31] MEDS: ALPRAZOLAM 1 MG TAB PO SCH (20:48)
--- NOTE | 2019-10-31 21:02 | NUR ---
10/31/2019 Subjective: Mrs. Marquez is a 63-year-old female patient who has been seen and evaluated. The patient is doing fine. The patient relates the pain is better controlled. The patient denies fever, chills, shortness of breath, palpitations, PND, chest pain, abdominal pain, melena, dysuria, frequency. The patient is still experience some diarrhea, but she is on laxatives. Objective: Vital signs: Blood pressure 143/84, respiration 18, pulse 84, temperature 99.5; O2 sat: 97% on room air. Constitutional: The patient is alert oriented to person, time, and place. HEENT: No gross abnormalities. Normocephalic, atraumatic. Neck: Supple, no JVD. Lungs: Clear to auscultation. No rales, no rhonchi. Heart: Regular rate and rhythm, no murmurs, no gallops Abdomen: Soft non tender, no guarding. Extremities: No edema. No clubbing. Neurologic: Alert oriented 3, no focal weakness. Psychiatrist: Normal mood, normal judgment. Skin: No rashes Assessment: Pancreatic mass, possible malignancy. History of constipation Hypokalemia Pressure ulcer of left lateral hip/buttock Anemia Alcohol dependency Active smoker Recent weight loss Chronic depression 10/30/2019 1. Oncology consultation requested. Recommendations noted. Patient has been scheduled to undergo CT scan guided pancreatic tail mass biopsy. 2. Pain control. 3. DVT prophylaxis. 4. Monitor labs. 5. Replete potassium 6. Discussed with nursing staff about patient condition and with Dr. Wilder 10/31/2019 The patient has been scheduled for CT-guided pancreatic tail mass biopsy on Friday. Avoid frequent blood draws as advised. Monitor potassium and replace as needed, currently 4.3 mmol/L. Iron: 26; TIBC: 186; percent saturation: 14; transferrin; ferritin: 206.50. List of medications reviewed. Plan of care: Patient has been scheduled to undergo CT scan guided pancreatic tail mass biopsy on friday Pain control. DVT prophylaxis. Monitor labs as needed Replete potassium as needed Discussed with nursing staff about patient condition and with Dr. Wilder
[2019-10-31] MEDS ORDERED: ACETAMINOPHEN 325 MG TAB PO PRN (21:30)
--- NOTE | 2019-10-31 21:40 | NUR ---
per MD order bladder scan after pt voids, bladder scan performed 0 PVR noted, will continue to monitor patient s/p void for possible straight cath
[2019-11-01] VITALS (11 sets, daily range): BP systolic 106–143; BP diastolic 57–84
--- NOTE | 2019-11-01 01:39 | NUR ---
bladder scan performed 620cc detected, straight cath performed X 2 attempts using aseptic technique, tolerated well, 600cc keila urine obtained with air bubbles and sedimentation noted
[2019-11-01] MEDS: MORPHINE SULFATE INJ 4 MG/ML INJ 1ML IV PRN ×6 (01:40→18:34)
[2019-11-01] MEDS ORDERED: IRON SUCROSE 100 MG in SODIUM CHLORIDE 0.9% 100 ML 100 ML IV SCH ×2 (04:15→05:00)
[2019-11-01] MEDS: POLYETHYLENE GLYCOL 3350 17 GM PACK PO SCH ×4 (05:27→22:00)
--- NOTE | 2019-11-01 05:50 | NUR ---
PATIENT C/O ABDOMINAL PAIN AND INABILITY TO DEFECATE, SUPPOSITORY GIVEN, HARD FECAL MATTER FELT DURING INSERTION, PATIENT REFUSE DIGITAL STIMULATION C/O SEVER PAIN, MIRALAX GIVEN PO ORDERED BY MD FERRO
--- NOTE | 2019-11-01 05:53 | NUR ---
BLADDER SCAN PERFORMED, PT NOT ABLE TO VOID, SEVERAL ATTEMPTS, BLADDER SCANNER READING 175CC URINE NOTED, NO STRAIGHT CATH AT THIS TIME, WILL CONTINUE TO MONITOR AND ENCOURAGE TO URINATE
[2019-11-01 06:36] LABS: INR 0.93
[2019-11-01 06:37] LABS: PARTIAL THROMBOPLASTIN TIME 28.8 seconds (23.8-35.5)
--- NOTE | 2019-11-01 07:51 | NUR ---
BSSR GIVEN TO [place] MADE AWARE OF CT scan of the abdomen done and the findings are the pancreatic mass involving the distal pancreatic body and tail as well as celiac axis. PT PENDING LIVER BIOPSY THIS AM, PT AWARE OF PROCEDURE, CONSENT IN CHART, PT CONTINUES TO HAVE URINARY RETENTION, PER MD ORDER, BLADDER SCAN PERFORMED AT END OF SHIFT, 240CC SEEN DURING BLADDER SCAN, PT STRAIGHT CATH USING ASEPTIC TECHNIQUE, 300CC OF CED URINE SEDIMENTATION NOTED, PT AND [place] MADE AWARE OF NEXT PRN DOSE OF MORPHINE FOR PAIN, SACRUM WOUND AND LEFT HIP WOUND FOAM DRESSING IN PLACE . PT REQUESTING PAIN MEDICATION FOR SACRUM, ABDOMINAL, AND VAGINAL PAIN AFTER STRAIGHT CATH PROCEDURE PERFORMED, CALL LIGHT WITHIN REACH BED IN LOWEST POSITION
[2019-11-01] MEDS: IRON SUCROSE 100 MG in SODIUM CHLORIDE 0.9% 100 ML 100 ML IV SCH (09:10)
[2019-11-01] MEDS: MULTIVITAMINS/MINERALS TAB PO SCH (09:10)
[2019-11-01] MEDS: CLARITHROMYCIN 500 MG TAB PO SCH ×2 (09:10→16:28)
[2019-11-01] MEDS: BALSAM PERU/CASTOR OIL 60 GM OINT...G. TP SCH (09:11)
[2019-11-01] MEDS: SERTRALINE HCL 100 MG TAB PO SCH (09:11)
--- NOTE | 2019-11-01 09:39 | Progress Note ---
DATE: SUBJECTIVE: The patient seen and examined today. The patient appears comfortable. Clinical condition is same. The patient denies any new symptom, requiring pain medication. PHYSICAL EXAMINATION: VITAL SIGNS: Alert, awake, and communicative. HEENT: Normocephalic, atraumatic. Sclerae pink. Conjunctivae clear. NECK: Supple. CHEST: Clear to auscultation with decreased breath sounds at bases. ABDOMEN: Soft. EXTREMITIES: No edema. LABORATORY AND IMAGING DATA: Reviewed. ASSESSMENT AND PLAN: The patient with a history multiple condition include history of smoking, alcoholism. Currently in the hospital with worsening back pain, fatigue, lethargic, and tiredness. Her workup shows pancreatic mass. She has a history of positive weight loss. She is scheduled to get a CT-guided pancreatic biopsy. RECOMMENDATION: 1. We will follow up with pathology report. 2. reported. 3. Continue remaining care. 4. Further recommendation and treatment as per workup. 5. Anemia with normal MCV anemia of chronic disease. B12 level was high. Ferritin level was high. 6. To monitor CBC. 7. Avoid frequent blood draws. 8. We will monitor closely. MD JAREK Preston/WARREN /[id number]
--- NOTE | 2019-11-01 11:00 | NUR ---
11/01/2019 Subjective: Mrs. Marquez is a 63-year-old female patient who has been seen and evaluated. The patient is doing fine. The patient relates the pain is better controlled. The patient denies fever, chills, shortness of breath, palpitations, PND, chest pain, abdominal pain, melena, dysuria, frequency. The patient is still experience some diarrhea, but she is on laxatives. Objective: Vital signs: Blood pressure 127/71, respiration 19, pulse 116, temperature 99.0; O2 sat: 95% on room air. Constitutional: The patient is alert oriented to person, time, and place. HEENT: No gross abnormalities. Normocephalic, atraumatic. Neck: Supple, no JVD. Lungs: Clear to auscultation. No rales, no rhonchi. Heart: Regular rate and rhythm, no murmurs, no gallops Abdomen: Soft non tender, no guarding. Extremities: No edema. No clubbing. Neurologic: Alert oriented 3, no focal weakness. Psychiatrist: Normal mood, normal judgment. Skin: No rashes Assessment: Pancreatic mass, possible malignancy. History of constipation Hypokalemia Pressure ulcer of left lateral hip/buttock Anemia Alcohol dependency Active smoker Recent weight loss Chronic depression 10/30/2019 1. Oncology consultation requested. Recommendations noted. Patient has been scheduled to undergo CT scan guided pancreatic tail mass biopsy. 2. Pain control. 3. DVT prophylaxis. 4. Monitor labs. 5. Replete potassium 6. Discussed with nursing staff about patient condition and with Dr. Wilder 10/31/2019 The patient has been scheduled for CT-guided pancreatic tail mass biopsy on Friday. Avoid frequent blood draws as advised. Monitor potassium and replace as needed, currently 4.3 mmol/L. Iron: 26; TIBC: 186; percent saturation: 14; transferrin; ferritin: 206.50. List of medications reviewed. 11/01/2019 Pulmonology evaluated the patient pertaining to continue antibiotics, check bladder scan and rule out retention, and repeat chest CT as outpatient. Awaiting CT scan guided pancreatic tail mass biopsy. Plan of care: Patient has been scheduled to undergo CT scan guided pancreatic tail mass biopsy Avoid frequent blood draws as advised. Pain control. DVT prophylaxis. Monitor labs as needed Replete potassium as needed Discussed with nursing staff about patient condition and with Dr. Wilder
--- NOTE | 2019-11-01 11:20 | NUR ---
ASSESSMENT: Spiritual distress Pt anxious about upcoming procedure. Pt states she has a "liver biopsy" scheduled. Pt states her illness is much worse than originally thought. Pt states she has 3 sons who are supportive. Pt states she has been "praying for strength." Intervention: Provided hospitality and empathic listening. Facilitated identification of emotions. Provided prayer. 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 Outcome: Pt expressed appreciation for visit. [employer] Dispatcher provided information on how to reach bowling alley mechanic, if needed. EILEEN KUMARI [employer] Dispatcher Spiritual Care Department O: [phone]
--- NOTE | 2019-11-01 13:56 | NUR ---
Pulmonary Medicine DATE 11/01/2019 SUBJECTIVE: hard stool, small amounts voids, random bladder scanns ~300 cc straight cath 300 cc RA fio2 no resp distress REVIEW OF SYSTEMS: No bleed, no headache OBJECTIVE: VITAL SIGNS: vital signs noted, reviewed per the chart record. GENERAL: no acute distress. Alert and calm. HEENT: Normocephalic, atraumatic. NECK: Supple. Throat midline. LUNGS: Bilateral air entry, limited, but mostly clear. CARDIOVASCULAR: S1, S2. No murmurs, rubs, or gallops. ABDOMEN: some fullness, mild discomfort on moderate palpation EXTREMITIES: No clubbing, no cyanosis, no edema. INTEGUMENT: No rash no purpura. LABORATORY DATA: cr .56, wbc 9.5, hct 30 IMPRESSION AND PLAN: 1. Mild nonspecific pulmonary opacities, unclear etiology. 2. Pulmonary nodular opacities, treat as mild pneumonia. 3. Mild pulmonary opacities, possible indolent chronic condition/infection, possible scarring. 4. Abnormal chest radiography, less likely, but not ruled out chronic progressive noninfectious pneumonitis or tumor/malignancy. 5. Functional immunosuppression, lifelong alcoholism. 6. Recent weight loss 7. Pancreatic lesion, malignancy suspected, rule out other etiologies. 8. Nonspecific adrenal and liver lesions, rule out metastases. 9. Severe back pain, unrelenting/progressive. 10. Chronic depression. 11. Alcohol dependency, recently quit. 12. Active smoker. Antibiotic continue Outpatient repeat chest CT Tentative IR biopsy on Friday, reportedly the liver lesion Continue BMs Ensure UOP Vitamins, avoid worsening malnutrition Thank you very much, Dr. Hitchcock, for this consult. Please call for questions.
--- NOTE | 2019-11-01 20:00 | NUR ---
Received pt in bed alert, c/o pain 03/09. Prev staff nurse medicated pt. Will med per AUG. Bed in low position, call light in reach, will con to mon
[2019-11-01] MEDS: TRAZODONE HCL 50 MG TAB PO SCH (21:00)
[2019-11-01] MEDS: ALPRAZOLAM 1 MG TAB PO SCH (21:00)
--- NOTE | 2019-11-01 22:00 | NUR ---
Pt resting in bed, states some relief from generalized pain. Pt refusing sleep medication at this time would like to get pain under control. States from 9 to 6 at this time. Will cont to mon
[2019-11-02] VITALS (8 sets, daily range): BP systolic 105–153; BP diastolic 55–81
[2019-11-02] MEDS: ONDANSETRON HCL INJ 2MG/ML 2ML 2 MG/ML VIAL IV PRN ×2 (04:30→21:45)
[2019-11-02] MEDS: MORPHINE SULFATE INJ 4 MG/ML INJ 1ML IV PRN ×4 (04:30→13:59)
[2019-11-02] MEDS: POLYETHYLENE GLYCOL 3350 17 GM PACK PO SCH ×4 (06:00→21:45)
[2019-11-02] MEDS: IRON SUCROSE 100 MG in SODIUM CHLORIDE 0.9% 100 ML 100 ML IV SCH (07:42)
--- NOTE | 2019-11-02 09:34 | Progress Note ---
DATE: SUBJECTIVE: The patient is seen and examined today. The patient appeared comfortable clinically doing better. She is scheduled for biopsy today, biopsy was canceled yesterday. PHYSICAL EXAMINATION: GENERAL: Alert, awake, and communicative. HEENT: Normocephalic, atraumatic. Sclerae pink. Conjunctivae clear. NECK: Supple. CHEST: Clear to auscultation with decreased breath sounds at bases. ABDOMEN: Soft. EXTREMITIES: No edema. LABORATORY AND IMAGING DATA: Reviewed. ASSESSMENT AND PLAN: The patient with a history of infiltrative pancreatic mass with possible metastatic disease, waiting for a CT-guided pancreatic mass biopsy. Clinical condition stable, requiring pain medication for back pain. RECOMMENDATION: 1. Continue current care. 2. Further recommendation treatment for workup. 3. We will monitor the patient with you closely. 4. We will do family meeting after 5 minutes of the procedure and pathology report. MD JAREK Preston/WARREN /[id number]
--- NOTE | 2019-11-02 09:57 | Diagnostic Imaging Report ---
Limited abdominal ultrasound History: Liver masses Comparison: CT abdomen/pelvis from 10/28/2019 Technique: Limited sonographic images are obtained of the liver for the assessment of focal lesions. IMPRESSION: Previously identified hepatic lesions on the prior CT examination are not visualized sonographically for ultrasound-guided percutaneous biopsy. Signed by: Dr. Femi Mojica MD on 11/02/2019 9:53 AM
[2019-11-02] MEDS ORDERED: MIDAZOLAM HCL 2 MG/2 ML VIAL ONE (10:08)
[2019-11-02] MEDS ORDERED: FENTANYL CITRATE/PF 100MCG/2 ML INJ ONE (10:08)
--- NOTE | 2019-11-02 10:50 | NUR ---
11/02/2019 Subjective: Mrs. Marquez is a 63-year-old female patient who has been seen and evaluated. No acute distress. The patient denies fever, chills, shortness of breath, palpitations, PND, chest pain, abdominal pain, melena, dysuria, frequency. The patient is doing fine. Objective: Vital signs: Blood pressure 134/81, respiration 18, pulse 99, temperature 99.5, O2 sat: 96% on room air.. Constitutional: The patient is alert oriented to person, time, and place. HEENT: No gross abnormalities. Normocephalic, atraumatic. Neck: Supple, no JVD. Lungs: Clear to auscultation. No rales, no rhonchi. Heart: Regular rate and rhythm, no murmurs, no gallops Abdomen: Soft non tender, no guarding. Extremities: No edema. No clubbing. Neurologic: Alert oriented 3, no focal weakness. Psychiatrist: Normal mood, normal judgment. Skin: No rashes Assessment: Pancreatic mass, possible malignancy. History of constipation Hypokalemia Pressure ulcer of left lateral hip/buttock Anemia Alcohol dependency Active smoker Recent weight loss Chronic depression 10/30/2019 1. Oncology consultation requested. Recommendations noted. Patient has been scheduled to undergo CT scan guided pancreatic tail mass biopsy. 2. Pain control. 3. DVT prophylaxis. 4. Monitor labs. 5. Replete potassium 6. Discussed with nursing staff about patient condition and with Dr. Wilder 10/31/2019 The patient has been scheduled for CT-guided pancreatic tail mass biopsy on Friday. Avoid frequent blood draws as advised. Monitor potassium and replace as needed, currently 4.3 mmol/L. Iron: 26; TIBC: 186; percent saturation: 14; transferrin; ferritin: 206.50. List of medications reviewed. 11/01/2019 Pulmonology evaluated the patient pertaining to continue antibiotics, check bladder scan and rule out retention, and repeat chest CT as outpatient. Awaiting CT scan guided pancreatic tail mass biopsy. 11/02/2019 CT of the abdomen without contrast reported no targetable hepatic lesion for percutaneous biopsy. The pancreatic tail mass is better appreciated on the prior contrast-enhanced examination. The right a adrenal nodule demonstrates noncontrast attenuation values which are compatible with a benign adenoma. The patient is to continue same current management. Report any other abnormality. Plan of care: Patient has been scheduled to undergo CT scan guided pancreatic tail mass biopsy Avoid frequent blood draws as advised. Pain control. DVT prophylaxis. Monitor labs as needed Replete potassium as needed Discussed with nursing staff about patient condition and with Dr. Wilder
--- NOTE | 2019-11-02 11:22 | Diagnostic Imaging Report ---
Limited noncontrast CT of the abdomen History: The pancreas mass, liver masses. Comparison: CT abdomen/pelvis with contrast from 10/28/2019. Technique: Limited noncontrast axial images of the abdomen were obtained for targeting purposes. RADIATION DOSE: Total DLP: 124.49 mGy*cm Dose modulation, iterative reconstruction, and/or weight based adjustment of the mA/kV was utilized to reduce the radiation dose to as low as reasonably achievable. FINDINGS: Limited axial images of the abdomen were obtained for attempted visualization of hepatic lesions prior to percutaneous biopsy. The previously identified subcentimeter hepatic lesions noted on the prior contrast enhanced examination or not well-visualized on this noncontrast examination. No targetable lesion is appreciated for percutaneous biopsy. The remainder the examination is unchanged from the recent prior CT abdomen/pelvis examination from 10/28/2019. The pancreatic tail mass is better appreciated on the prior contrast enhanced examination. The right adrenal nodule demonstrates noncontrast attenuation values which are compatible with a benign adenoma. IMPRESSION: Limited noncontrast CT of the abdomen obtained demonstrates no targetable hepatic lesion for percutaneous biopsy. Findings were discussed with Dr. Moura at 10:30 AM on 11/02/2019. Signed by: Dr. Femi Mojica MD on 11/02/2019 11:19 AM
--- NOTE | 2019-11-02 11:43 | NUR ---
Notified Dr. Hitchcock that pt has been having urinary retention. Received orders to insert wynn and consult Dr. Merrill for urinary retention. Wynn size 16fr placed per sterile technique and emptied 450 ml of keila clear urine.
[2019-11-02] MEDS: CLARITHROMYCIN 500 MG TAB PO SCH ×2 (12:04→16:44)
[2019-11-02] MEDS: BALSAM PERU/CASTOR OIL 60 GM OINT...G. TP SCH (12:04)
[2019-11-02] MEDS: MULTIVITAMINS/MINERALS TAB PO SCH (12:04)
[2019-11-02] MEDS: SERTRALINE HCL 100 MG TAB PO SCH (12:04)
--- NOTE | 2019-11-02 14:47 | NUR ---
Pulmonary Medicine DATE 11/02/2019 SUBJECTIVE: cath with 450 cc , wynn left in RA fio2 BM x 2 ok sized still lots of pain REVIEW OF SYSTEMS: No bleed, no headache OBJECTIVE: VITAL SIGNS: vital signs noted, reviewed per the chart record. GENERAL: no acute distress. Alert and calm. HEENT: Normocephalic, atraumatic. NECK: Supple. Throat midline. LUNGS: Bilateral air entry, limited, but mostly clear. CARDIOVASCULAR: S1, S2. No murmurs, rubs, or gallops. ABDOMEN: some fullness, mild discomfort on moderate palpation EXTREMITIES: No clubbing, no cyanosis, no edema. INTEGUMENT: No rash no purpura. LABORATORY DATA: no new updates IMPRESSION AND PLAN: 1. Mild nonspecific pulmonary opacities, unclear etiology. 2. Pulmonary nodular opacities, treat as mild pneumonia. 3. Mild pulmonary opacities, possible indolent chronic condition/infection, possible scarring. 4. Abnormal chest radiography, less likely, but not ruled out chronic progressive noninfectious pneumonitis or tumor/malignancy. 5. Functional immunosuppression, lifelong alcoholism. 6. Recent weight loss 7. Pancreatic lesion, malignancy suspected, rule out other etiologies. 8. Nonspecific adrenal and liver lesions, rule out metastases. 9. Severe back pain, unrelenting/progressive. 10. Chronic depression. 11. Alcohol dependency, recently quit. 12. Active smoker. Antibiotic continue Outpatient repeat chest CT GI workup, consideration for biopsy per them Continue BMs Ensure UOP Vitamins, avoid worsening malnutrition Thank you very much, Dr. Hitchcock, for this consult. Please call for questions.
[2019-11-02] MEDS ORDERED: FENTANYL 25 MCG/HR PATCH TOP SCH (16:30)
--- NOTE | 2019-11-02 18:21 | NUR ---
Nutrition Intervention Note RD Recommendation(s) for Physician: The patient meets criteria for unspecified SEVERE protein-calorie malnutrition. -Advance to regular diet as tolerated -Continue Ensure Enlive TID for adequacy -Continue MVI w/minerals + vitamin C for wound healing Plan of Care: RD following, monitoring for tolerance and adequacy, ONS rec Nutrition reason for involvement: follow up RD Assessment 11/01: Follow up. Pt tearful and reports being in a significant amount of pain at time of visit. RN notified, stated she was aware and pt pending scheduled medication. Pt NPO for procedure/testing this am with plan to resume diet. Pt reports eating better and drinking 100% of Ensure 2-3 x per day. Noted fluctuating intake per chart. Pt denies any GI distress. Biopsy pending, pt with possible metastatic malignancy per CTs. Pt discussed with RN. Will continue to monitor. (10/29) Chart reviewed. Labs and meds revised. 63yo F, who was admitted for pancreatic mass. Visited pt in the room. Pt was emotional about her current situation. Pt reported of abdominal pain with constipation that was ongoing for over a month. Pt also reported weight loss due to ongoing pain (UBW 115-120lbs). Pt was given dulcolax, lactulose and miralax without any relief. Pt reported tolerance with full liquid diet. Pt stated that solid foods make her nauseated and preferred liquid diet. Pt has been drinking 100% of Ensure Enlive. No chewing or swallowing difficulty noted. Pt was motivated to keep her PO intake up. Discussed current nutrition care plan with pt and pt was agreeable. All questions have been answered. Will continue to monitor and follow. Principal Problems/Diagnoses: pancreatic mass, hypokalemia PMH: Depression, chronic back pain, alcohol dependence I/O: reviewed GI: LBM 10/31; abdomen soft, flat, non-tender Skin: Multiple stage II pressure ulcers Labs: (10/30) Na 141, K 4.2, BUN 13, Cr 0.56, Gluc 108, Ca 9.2 Meds: fentanyl, miralax, MVI with minerals, IV Fe, MVI w/minerals, zofran, dilaudid, dulcolax Ht: 60in Wt: 106.4lb BMI: 20.8kg/m2 IBW: 100lb +/- 10% Malnutrition Evaluation (10/30/2019) The patient meets criteria for unspecified SEVERE protein-calorie malnutrition. Energy intake: <50% of estimated energy requirements for >1 month Weight loss: >5% in 1 month (Acute) Fat loss: Severe - prominent rib cage, hollow around orbital area Muscle loss: Severe squaring of shoulder, clavicle protrusion Supporting Evidence: Fluid accumulation: no accumulation identified Functional Status: no changes Nutrition Prescription (Diet Order): NPO this am for procedure Estimated Nutritional Needs: Calories: 1440 1680kcal(30-35kcal/kg/d) Weight used: CBW Protein : 72 96kcal(1.5-2.0g/kg/d) Weight used: CBW Diet Adequacy: not meeting calorie needs, not meeting protein needs Tolerance: Tolerating PO Diet Education Needs Assessment: Diet education not indicated. Nutrition Care Level: High (possible malignancy, weight loss) Nutrition Diagnosis: Severe malnutrition related to current medical status as evidenced by weight loss, loss of muscle/ fat, and <50% of estimated energy requirements for >1 month. Goal: Patient will meet 75-100% of estimated needs by follow up Progress: Progressing Interventions: Modified diet, Commercial beverage, Commercial food, Multivitamin/mineral supplement therapy Monitoring/Evaluation: Total energy intake, Total protein intake, Modified diet, Liquid supplement, Weight change Signed: Amara Patton RD, LD, [facility]
[2019-11-02] MEDS: HYDROMORPHONE 1MG/1ML INJ IV PRN ×2 (18:37→21:45)
--- NOTE | 2019-11-02 19:00 | NUR ---
Received bedside report from day nurse. Patient awake and resting in bed, no s/s of distress at this time. Bed locked and in low position, side rails up, call light placed within reach. Patient instructed to call for assistance if needed, verbalized understanding. All safety measures in place. Will continue to monitor.
[2019-11-02] MEDS: ALPRAZOLAM 1 MG TAB PO SCH (21:45)
[2019-11-02] MEDS: TRAZODONE HCL 50 MG TAB PO SCH (21:45)
[2019-11-03] VITALS (8 sets, daily range): BP systolic 103–110; BP diastolic 60–69
--- NOTE | 2019-11-03 00:08 | Consultation ---
DATE OF CONSULTATION: 11/02/2019 Urology Consultation CHIEF COMPLAINT/REASON FOR CONSULTATION: Urinary retention. HISTORY OF PRESENT ILLNESS: Ms. Rico is a 63-year-old female, admitted to the hospital with abdominal pain, found to have pancreatic mass, multiple liver lesions, splenic lesions, bony metastases, also, urinary retention and constipation. Denied gross hematuria. No dysuria. Denied other urologic history. PAST MEDICAL HISTORY: Significant for depression, chronic back pain, and alcohol dependant, substance abuse. MEDICATIONS: Please see MAR. ALLERGIES: NKDA. SOCIAL HISTORY: Positive alcohol abuse. History of marijuana use. History of smoking, smoking one pack per day. FAMILY HISTORY: Denied urologic stones or malignancies. REVIEW OF SYSTEMS: Noncontributory, other than problems mentioned above for 12-organ systems. PHYSICAL EXAMINATION: GENERAL: Elderly female, in no acute distress. VITAL SIGNS: Currently afebrile with stable vital signs. HEENT: Sclerae anicteric. NECK: Supple. BACK: Without costovertebral angle tenderness bilaterally. ABDOMEN: Soft, it is nontender, it is nondistended. No palpable mass. No palpable hernias. No palpable adenopathy. : Normal female external genitalia. EXTREMITIES: No edema. NEURO: Moves all extremities. PSYCH: alert and appropriate. SKIN: Intact. Normal color. PERTINENT LABORATORY DATA: CT scan revealing a 2 cm right adrenal nodule, positive retroperitoneal lymphadenopathy, 1.6 cm pancreatic mass, multiple liver masses and multiple liver metastatic lesions. Hemoglobin 9.8, hematocrit 30, platelet count , and white blood cell count 9460. Sodium 141, potassium 4.3, chloride 102, bicarb 32, BUN 13, creatinine 0.56, and glucose 108. IMPRESSION: 1. Right adrenal nodule. 2. Urinary retention. 3. Retroperitoneal lymphadenopathy. 4. Anemia. 5. Constipation. 6. Abdominal pain. PLAN: Place a Olson catheter and outpatient urodynamics, constipation, increased fiber liquids, defer biopsy lesions primary service. Thank you for allowing us to participate in the care of your patient. We will be happy to follow along with you. Don Merrill MD ES/MODL /[id number]
[2019-11-03] MEDS: ONDANSETRON HCL INJ 2MG/ML 2ML 2 MG/ML VIAL IV PRN ×3 (01:01→09:05)
[2019-11-03] MEDS: HYDROMORPHONE 1MG/1ML INJ IV PRN ×7 (01:02→21:25)
--- NOTE | 2019-11-03 01:39 | NUR ---
Dr. Zeinab Moura here to see patient. Received orders to change Miralax to 34 gm Q8H.
[2019-11-03] MEDS: BALSAM PERU/CASTOR OIL 60 GM OINT...G. TP SCH (06:14)
[2019-11-03] MEDS: POLYETHYLENE GLYCOL 3350 17 GM PACK PO SCH ×3 (06:14→21:28)
--- NOTE | 2019-11-03 07:07 | NUR ---
Bedside report given to day nurse. Patient in stable condition, no s/s of distress at this time. All safety measures in place.
--- NOTE | 2019-11-03 07:30 | NUR ---
PATIENT IN BED RESTING WITH EYES CLOSED, NO DISTRESS NOTED. LY CATHETER DRAINING YELLOW URINE. BED IN LOWER POSITION, CALL LIGHT AT REACH.
[2019-11-03 08:48] LABS: BASOPHILS # (AUTO) 0.1 (0.0-0.1); EOSINOPHILS # (AUTO) 0.3 (0.0-0.4); HEMATOCRIT 35.3 % (34.2-44.1); HEMOGLOBIN 11.4 g/dL (12.0-16.0); MEAN CORPUSCULAR HGB CONC 32.3 g/dL (31-35); MEAN CORPUSCULAR VOLUME 95.9 fL (81-99); MONOCYTES # (AUTO) 0.5 (0.2-0.8); NEUTROPHILS # (AUTO) 6.5 (2.1-6.9); PLATELET COUNT 305 x10e3/uL (140-360); RED BLOOD COUNT 3.68 x10e6/uL (3.6-5.1); RED CELL DISTRIBUTION WIDTH 13.9 % (11.7-14.4)
--- NOTE | 2019-11-03 08:52 | NUR ---
11/03/2019 Subjective: Mrs. Marquez has been seen and evaluated. No acute distress. The patient denies fever, chills, shortness of breath, palpitations, PND, chest pain, abdominal pain, melena, dysuria, frequency. The patient is doing fine. Objective: Vital signs: Blood pressure 113/66, respiration 18, pulse 89, temperature 97.8, O2 sat: 95% on room air.. Constitutional: The patient is alert oriented to person, time, and place. HEENT: No gross abnormalities. Normocephalic, atraumatic. Neck: Supple, no JVD. Lungs: Clear to auscultation. No rales, no rhonchi. Heart: Regular rate and rhythm, no murmurs, no gallops Abdomen: Soft non tender, no guarding. Extremities: No edema. No clubbing. Neurologic: Alert oriented 3, no focal weakness. Psychiatrist: Normal mood, normal judgment. Skin: No rashes Assessment: Pancreatic mass, possible malignancy. History of constipation Hypokalemia Pressure ulcer of left lateral hip/buttock Anemia Alcohol dependency Active smoker Recent weight loss Chronic depression 10/30/2019 1. Oncology consultation requested. Recommendations noted. Patient has been scheduled to undergo CT scan guided pancreatic tail mass biopsy. 2. Pain control. 3. DVT prophylaxis. 4. Monitor labs. 5. Replete potassium 6. Discussed with nursing staff about patient condition and with Dr. Wilder 10/31/2019 The patient has been scheduled for CT-guided pancreatic tail mass biopsy on Friday. Avoid frequent blood draws as advised. Monitor potassium and replace as needed, currently 4.3 mmol/L. Iron: 26; TIBC: 186; percent saturation: 14; transferrin; ferritin: 206.50. List of medications reviewed. 11/01/2019 Pulmonology evaluated the patient pertaining to continue antibiotics, check bladder scan and rule out retention, and repeat chest CT as outpatient. Awaiting CT scan guided pancreatic tail mass biopsy. 11/02/2019 CT of the abdomen without contrast reported no targetable hepatic lesion for percutaneous biopsy. The pancreatic tail mass is better appreciated on the prior contrast-enhanced examination. The right a adrenal nodule demonstrates noncontrast attenuation values which are compatible with a benign adenoma. The patient is to continue same current management. Report any other abnormality. 11/03/2019 The patient was evaluated by urology pertaining the patient was placed on Olson catheter and advised to follow the patient with urodynamics as outpatient. Plan of care: Patient has been scheduled to undergo CT scan guided pancreatic tail mass biopsy Avoid frequent blood draws as advised. Pain control. DVT prophylaxis. Monitor labs as needed Replete potassium as needed Discussed with nursing staff about patient condition and with Dr. Wilder
[2019-11-03] MEDS: SERTRALINE HCL 100 MG TAB PO SCH (09:09)
[2019-11-03] MEDS: IRON SUCROSE 100 MG in SODIUM CHLORIDE 0.9% 100 ML 100 ML IV SCH (09:09)
[2019-11-03] MEDS: MULTIVITAMINS/MINERALS TAB PO SCH (09:09)
[2019-11-03] MEDS: CLARITHROMYCIN 500 MG TAB PO SCH ×2 (09:09→17:20)
--- NOTE | 2019-11-03 09:15 | NUR ---
ASSESSMENT: Spiritual concern Pt contemplating her own mortality. Pt states she isn't "afraid to ." Pt states she has 3 sons. Intervention: Provided empathic listening. Facilitated conversation on life and . Outcome: Will follow as able. EILEEN KUMARI Crew Chief Spiritual Care Department O: [phone]
--- NOTE | 2019-11-03 11:27 | NUR ---
PATIENT EXERCISED WITH PHYSICAL THERAPY. IN BED WITH CALL LIGHT AT REACH.
--- NOTE | 2019-11-03 11:29 | Progress Note ---
DATE: SUBJECTIVE: The patient is seen and examined today. The patient appeared comfortable. Clinically doing better. No other edema noted. OBJECTIVE: GENERAL: Alert, awake, communicative. HEENT: Normocephalic, atraumatic. Sclerae pink. Conjunctivae clear. NECK: Supple. CHEST: Decreased breath sounds at the bases. ABDOMEN: Soft. EXTREMITIES: No edema. LABS AND IMAGING: Reviewed. ASSESSMENT AND PLAN: 1. The patient with history of multiple medical conditions, admitted with back pain. Workup did show some pancreatic and liver lesion. The patient was followed with Interventional Radiology. Not a candidate for any procedure because of the size of the tumor is very small. 2. CA 19-9 level is also normal. RECOMMENDATION: 1. PET-CT as an outpatient for further evaluation. 2. Continue remaining care. 3. We will follow the patient closely. MD JAREK Preston/WARREN /[id number]
--- NOTE | 2019-11-03 12:57 | NUR ---
Pulmonary Medicine DATE 11/03/2019 SUBJECTIVE: wynn in no BMs reported by pt further RA fio2 (+)couldnt walk with PT REVIEW OF SYSTEMS: No bleed, no headache OBJECTIVE: VITAL SIGNS: vital signs noted, reviewed per the chart record. GENERAL: no acute distress. Alert and calm. HEENT: Normocephalic, atraumatic. NECK: Supple. Throat midline. LUNGS: Bilateral air entry, limited, but mostly clear. CARDIOVASCULAR: S1, S2. No murmurs, rubs, or gallops. ABDOMEN: some fullness, mild discomfort on moderate palpation EXTREMITIES: No clubbing, no cyanosis, no edema. INTEGUMENT: No rash no purpura. LABORATORY DATA: no new updates IMPRESSION AND PLAN: 1. Mild nonspecific pulmonary opacities, unclear etiology. 2. Pulmonary nodular opacities, treat as mild pneumonia. 3. Mild pulmonary opacities, possible indolent chronic condition/infection, possible scarring. 4. Abnormal chest radiography, less likely, but not ruled out chronic progressive noninfectious pneumonitis or tumor/malignancy. 5. Functional immunosuppression, lifelong alcoholism. 6. Recent weight loss 7. Pancreatic lesion, malignancy suspected, rule out other etiologies. 8. Nonspecific adrenal and liver lesions, rule out metastases. 9. Severe back pain, unrelenting/progressive. 10. Chronic depression. 11. Alcohol dependency, recently quit. 12. Active smoker. Antibiotic continue Outpatient repeat chest CT GI workup, consideration for biopsy per them Continue BMs Ensure UOP Vitamins, avoid worsening malnutrition PT consult, mobilize Thank you very much, Dr. Hitchcock, for this consult. Please call for questions.
--- NOTE | 2019-11-03 15:39 | NUR ---
PATIENT REPOSITIONED IN BED BY 2 STAFFS. C/O PAIN AND WAS MEDICATED ORDERED. BED IN LOWER POSITION, CALL LIGHT AT REACH.
--- NOTE | 2019-11-03 19:10 | NUR ---
Patient visited in room during nursing rounds. Patient alert and oriented x3. Bedridden and assist to turn in bed Q2hr. Olson cath in place for urinary retention. Pt having frequent generalized pain and being medicated accordingly. Call rowan within reach. Will monitor closely.
[2019-11-03] MEDS: ALPRAZOLAM 1 MG TAB PO SCH (20:46)
[2019-11-03] MEDS: TRAZODONE HCL 50 MG TAB PO SCH (20:46)
[2019-11-04] VITALS (7 sets, daily range): BP systolic 100–120; BP diastolic 58–68
[2019-11-04] MEDS: HYDROMORPHONE 1MG/1ML INJ IV PRN ×6 (00:44→18:06)
[2019-11-04] MEDS: POLYETHYLENE GLYCOL 3350 17 GM PACK PO SCH ×2 (06:00→14:00)
--- NOTE | 2019-11-04 07:24 | NUR ---
PATIENT IN BED RESTING WITH NO S/S OF DISTRESS. LY WITH YELLOW URINE. BED IN LOWER POSITION, CALL LIGHT AT REACH.
[2019-11-04] MEDS: SERTRALINE HCL 100 MG TAB PO SCH (09:28)
[2019-11-04] MEDS: MULTIVITAMINS/MINERALS TAB PO SCH (09:28)
[2019-11-04] MEDS: CLARITHROMYCIN 500 MG TAB PO SCH ×2 (09:28→17:00)
[2019-11-04] MEDS: BALSAM PERU/CASTOR OIL 60 GM OINT...G. TP SCH (09:28)
[2019-11-04] MEDS: IRON SUCROSE 100 MG in SODIUM CHLORIDE 0.9% 100 ML 100 ML IV SCH (09:28)
--- NOTE | 2019-11-04 11:24 | NUR ---
MD IN TO SEE PATIENT, NO NEW ORDER RECEIVED.
--- NOTE | 2019-11-04 11:38 | Progress Note ---
DATE: SUBJECTIVE: The patient is seen and examined today. The patient appears comfortable. Pain is better controlled. Denies any symptoms. OBJECTIVE: GENERAL: Alert, awake, and communicative. HEENT: Normocephalic and atraumatic. Sclerae pink. Conjunctivae clear. NECK: Supple. CHEST: Decreased breath sounds at the bases. CARDIOVASCULAR: Regular rate and rhythm. ABDOMEN: Soft. EXTREMITIES: No edema. LABS AND IMAGING: Reviewed. ASSESSMENT AND PLAN: The patient with history of multiple medical conditions, admitted with back pain. Workup shows pancreatic and liver lesion. The patient was followed with Interventional Radiology. Not a candidate for any procedure. The patient is currently doing okay. Tumor markers were normal. RECOMMENDATIONS: 1. Endoscopic ultrasound and biopsy. 2. PET-CT. 3. Nutrition support. 4. Pain management. 5. We will follow the patient very closely. MD JAREK Preston/WARREN /[id number]
--- NOTE | 2019-11-04 12:08 | NUR ---
Pulmonary Medicine DATE 11/04/2019 SUBJECTIVE: wynn in place still with pain eating some RA fio2 REVIEW OF SYSTEMS: No bleed, no headache OBJECTIVE: VITAL SIGNS: vital signs noted, reviewed per the chart record. GENERAL: no acute distress. Alert and calm. HEENT: Normocephalic, atraumatic. NECK: Supple. Throat midline. LUNGS: Bilateral air entry, limited, but mostly clear. CARDIOVASCULAR: S1, S2. No murmurs, rubs, or gallops. ABDOMEN: some fullness, mild discomfort on moderate palpation EXTREMITIES: No clubbing, no cyanosis, no edema. INTEGUMENT: No rash no purpura. LABORATORY DATA: no new updates IMPRESSION AND PLAN: 1. Mild nonspecific pulmonary opacities, unclear etiology. 2. Pulmonary nodular opacities, treat as mild pneumonia. 3. Mild pulmonary opacities, possible indolent chronic condition/infection, possible scarring. 4. Abnormal chest radiography, less likely, but not ruled out chronic progressive noninfectious pneumonitis or tumor/malignancy. 5. Functional immunosuppression, lifelong alcoholism. 6. Recent weight loss 7. Pancreatic lesion, malignancy suspected, rule out other etiologies. 8. Nonspecific adrenal and liver lesions, rule out metastases. Likely adrenal adenoma. 9. Severe back pain, unrelenting/progressive. 10. Chronic depression. 11. Alcohol dependency, recently quit. 12. Active smoker. Antibiotic continue Outpatient repeat chest CT GI workup, consideration for biopsy per them Continue BMs Ensure UOP Vitamins, avoid worsening malnutrition PT consult, mobilize Thank you very much, Dr. Hitchcock, for this consult. Please call for questions.
--- NOTE | 2019-11-04 14:23 | NUR ---
Final diagnosis: Pancreatic mass, possible malignancy. History of constipation Hypokalemia-corrected Pressure ulcer of left lateral hip/buttock Anemia Alcohol dependency Active smoker Recent weight loss Chronic depression Hospital course: 63-year-old female patient admitted under my service on 10/28/2019 and discharged on 11/04/2019. The patient was treated for the above conditions. The patient was place on IV antibiotics, IV Fluids, Pain control, antiemetics as needed, potassium replacement, Wound care, Iron supplement. The patient was evaluated by neurologists pertaining the patient will be followed as outpatient and repeat chest CT. Abdomen/pelvis CT with contrast on 10/28/2019: 1. Infiltrative pancreatic mass involving the distal pancreatic body and tail as well as celiac axis and SMA with mass effect on portal vein is concerning for primary malignancy. 2. Ill-defined low-density lesions in the liver and spleen as well as right adrenal nodule and sclerotic lesions in the spine are suspicious for metastases. 3. Peripheral nodular groundglass opacities in both lungs could be due to metastases or atypical infection. 4. Marked degree of fecal retention in the rectum compatible constipation. Abdomen ultrasound on 11/02/2019: Previously identified hepatic lesions on the prior CT examination are not visualized sonographically for ultrasound-guided percutaneous biopsy. The patient underwent CT-guided biopsy for pancreatic mass, which was unsuccessful, so the patient will be transferred to [facility] for endoscopic ultrasound-guided biopsy by Dr. Linares, outboard system operator. PCR for Coronavirus was reported negative. Diet: Regular diet. Activities: As tolerated. Condition at the time of discharge: stable. Medications: Per reconciliation list Disposition: Follow-up with PCP and gastroenterology. 11/04/2019 Subjective: Events noted. No acute distress. The patient is doing fine. The patient denies fever, chills, shortness of breath, palpitations, PND, chest pain, abdominal pain, melena, dysuria, frequency. Objective: Vital signs: Blood pressure 100/63, respiration 18, pulse 95, temperature 98.2, O2 sat: 94% on room air.. Constitutional: The patient is alert oriented to person, time, and place. HEENT: No gross abnormalities. Normocephalic, atraumatic. Neck: Supple, no JVD. Lungs: Clear to auscultation. No rales, no rhonchi. Heart: Regular rate and rhythm, no murmurs, no gallops Abdomen: Soft non tender, no guarding. Extremities: No edema. No clubbing. Neurologic: Alert oriented 3, no focal weakness. Psychiatrist: Normal mood, normal judgment. Skin: No rashes Assessment: Pancreatic mass, possible malignancy. History of constipation Hypokalemia-corrected Pressure ulcer of left lateral hip/buttock Anemia Alcohol dependency Active smoker Recent weight loss Chronic depression 10/30/2019 1. Oncology consultation requested. Recommendations noted. Patient has been scheduled to undergo CT scan guided pancreatic tail mass biopsy. 2. Pain control. 3. DVT prophylaxis. 4. Monitor labs. 5. Replete potassium 10/31/2019 The patient has been scheduled for CT-guided pancreatic tail mass biopsy on Friday. Avoid frequent blood draws as advised. Monitor potassium and replace as needed, currently 4.3 mmol/L. Iron: 26; TIBC: 186; percent saturation: 14; transferrin; ferritin: 206.50. List of medications reviewed. 11/01/2019 Pulmonology evaluated the patient pertaining to continue antibiotics, check bladder scan and rule out retention, and repeat chest CT as outpatient. Awaiting CT scan guided pancreatic tail mass biopsy. 11/02/2019 CT of the abdomen without contrast reported no targetable hepatic lesion for percutaneous biopsy. The pancreatic tail mass is better appreciated on the prior contrast-enhanced examination. The right a adrenal nodule demonstrates noncontrast attenuation values which are compatible with a benign adenoma. The patient is to continue same current management. Report any other abnormality. 11/03/2019 The patient was evaluated by urology pertaining the patient was placed on Olson catheter and advised to follow the patient with urodynamics as outpatient. 11/04/2019 Dr. iWlder advised to perform PET-CT as outpatient. Continue current management. List of medications reviewed. Potassium has been corrected. Continue Iron and multivitamin supplement. Plan of care: Patient has been scheduled to undergo CT scan guided pancreatic tail mass biopsy IV Iron Avoid frequent blood draws as advised. Pain control. DVT prophylaxis. Monitor labs as needed Replete potassium as needed Nutritional support PTOT Discussed with nursing staff about patient condition and with Dr. Wilder The patient will be transfer to [facility] for Endoscopic Ultrasound guided biopsy by Dr. Mayfield.
--- NOTE | 2019-11-04 15:55 | NUR ---
PATIENT REPOSITIONED IN BED. ENCOURAGED TO DRINK HER ENSURE. BED IN LOWER POSITION, CALL LIGHT AT REACH.
--- NOTE | 2019-11-04 16:23 | NUR ---
Nutrition Intervention Note RD Recommendation(s) for Physician: The patient meets criteria for unspecified SEVERE protein-calorie malnutrition. -Consider liberalizing diet to Regular to promote po intake -Continue Ensure Enlive TID for adequacy -Continue MVI w/minerals + vitamin C for wound healing -Bowel regimen per MD Plan of Care: RD following, monitoring for tolerance and adequacy, ONS rec Nutrition reason for involvement: follow up RD Assessment 11/03: Follow up. Per reviewed during am MDR. Pt sleeping at time of visit, pain control improved per MD notes. Noted empty Ensure bottle at bedside, pt continues with good supplement intake and fluctuating po intake. Noted 25-75% of meals per chart. In light of pain medications and last BM 11/01, consider bowel regimen. Chart reviewed. Will continue to monitor. 11/01: Follow up. Pt tearful and reports being in a significant amount of pain at time of visit. RN notified, stated she was aware and pt pending scheduled medication. Pt NPO for procedure/testing this am with plan to resume diet. Pt reports eating better and drinking 100% of Ensure 2-3 x per day. Noted fluctuating intake per chart. Pt denies any GI distress. Biopsy pending, pt with possible metastatic malignancy per CTs. Pt discussed with RN. Will continue to monitor. (10/29) Chart reviewed. Labs and meds revised. 63yo F, who was admitted for pancreatic mass. Visited pt in the room. Pt was emotional about her current situation. Pt reported of abdominal pain with constipation that was ongoing for over a month. Pt also reported weight loss due to ongoing pain (UBW 115-120lbs). Pt was given dulcolax, lactulose and miralax without any relief. Pt reported tolerance with full liquid diet. Pt stated that solid foods make her nauseated and preferred liquid diet. Pt has been drinking 100% of Ensure Enlive. No chewing or swallowing difficulty noted. Pt was motivated to keep her PO intake up. Discussed current nutrition care plan with pt and pt was agreeable. All questions have been answered. Will continue to monitor and follow. Principal Problems/Diagnoses: pancreatic mass, hypokalemia PMH: Depression, chronic back pain, alcohol dependence I/O: reviewed GI: LBM 11/01; abdomen soft, flat, non-tender Skin: Multiple stage II pressure ulcers Labs: 11/03: No new labs (10/30) Na 141, K 4.2, BUN 13, Cr 0.56, Gluc 108, Ca 9.2 Meds: fentanyl, miralax, MVI with minerals, IV Fe, MVI w/minerals, zofran, dilaudid, dulcolax Ht: 60in Wt: 106.4lb BMI: 20.8kg/m2 IBW: 100lb +/- 10% Malnutrition Evaluation (10/30/2019) The patient meets criteria for unspecified SEVERE protein-calorie malnutrition. Energy intake: <50% of estimated energy requirements for >1 month Weight loss: >5% in 1 month (Acute) Fat loss: Severe - prominent rib cage, hollow around orbital area Muscle loss: Severe squaring of shoulder, clavicle protrusion Supporting Evidence: Fluid accumulation: no accumulation identified Functional Status: no changes Nutrition Prescription (Diet Order): Cardiac Estimated Nutritional Needs: Calories: 1440 1680kcal(30-35kcal/kg/d) Weight used: CBW Protein : 72 96kcal(1.5-2.0g/kg/d) Weight used: CBW Diet Adequacy: not meeting calorie needs, not meeting protein needs Tolerance: Tolerating PO Diet Education Needs Assessment: Diet education not indicated. Nutrition Care Level: High (possible malignancy, weight loss) Nutrition Diagnosis: Severe malnutrition related to current medical status as evidenced by weight loss, loss of muscle/ fat, and <50% of estimated energy requirements for >1 month. Goal: Patient will meet 75-100% of estimated needs by follow up Progress: Progressing Interventions: Modified diet, Commercial beverage, Commercial food, Multivitamin/mineral supplement therapy Monitoring/Evaluation: Total energy intake, Total protein intake, Modified diet, Liquid supplement, Weight change Signed: Amara Patton RD, LD, [facility]
--- NOTE | 2019-11-04 19:09 | NUR ---
BED SIDE SHIFT REPORT GIVEN TO ON COMING .PATIENT IN BED RESTING WITH NO S/S OF DISTRESS.
--- NOTE | 2019-11-04 19:27 | NUR ---
[facility] (EMT) services arrived to the unit and was provided report by welder 2nd shift nurse (Juan C). Pt to be transferred to [facility] for continuing of care and biopsy procedure. HS (Tia) aware and has given EMT paperwork. Pt in stable condition and leaving unit via stretcher bed. Pt to be transported via ambulance.
== END 2019-11-04 19:51 | disposition short-term general hospital (02) | DRG 441 ==
LOC: ER 14:23 → ERHOLD 18:33 → MED/SURG3 10-29 03:02 → OBSVTOIN 10-30 10:02
PROVIDERS: ADMIT Internal Medicine; ATTEND Internal Medicine
DX: R16.0 Hepatomegaly, not elsewhere classified (principal); E43 Unspecified severe protein-calorie malnutrition; K86.9 Disease of pancreas, unspecified; E27.9 Disorder of adrenal gland, unspecified; R59.0 Localized enlarged lymph nodes; K59.00 Constipation, unspecified; F10.20 Alcohol dependence, uncomplicated; M54.9 Dorsalgia, unspecified; F32.9 Major depressive disorder, single episode, unspecified; F17.210 Nicotine dependence, cigarettes, uncomplicated; R91.1 Solitary pulmonary nodule; L89.322 Pressure ulcer of left buttock, stage 2; L89.222 Pressure ulcer of left hip, stage 2; Z68.20 Body mass index [BMI] 20.0-20.9, adult
CPT/HCPCS: 36415; 51701; 71045; 74177; 74470; 76705; 77012; 80048; 80053; 82550; 82553; 82607; 82728; 82746; 83540; 83690; 83735; 84100; 84436; 84443; 84466; 84479; 84484; 85007; 85025; 85027; 85045; 85610; 85730; 86301; 87635; 96365; 96374; 97139; 99251; 99284; G0378; J1170; J1756; J2250; J2270; J2405; J3010; J3480; J7050; Q9967